=== PATIENT | male | born 1955 | race Hispanic/Latino ===

== ENCOUNTER 2019-10-05 23:20 | Emergency (ER) | payer BC ==
[~2019-10-05] VITALS: Ht 160 cm; Wt 71.7 kg
--- OUTSIDE RECORDS SUMMARY | 2019-10-05 23:23 | XMS REPORT ---
[facility] Address Unknown Phone Unavailable Care Team Providers Care Lay Out Helper Name Role Phone Unavailable Unavailable Payers Payer Name Policy Type Policy Number Effective Date Expiration Date Problems This patient has no known problems. Allergies, Adverse Reactions, Alerts Allergy Name Allergy Type Status Severity Reaction(s) Onset Date Inactive Date Treating Clinician Comments No Known Allergies DA Active U 2018-05-19 00:00:00 No Known Allergies DA Active U 2017-11-29 00:00:00 Medications This patient has no known medications.
--- OUTSIDE RECORDS SUMMARY | 2019-10-05 23:23 | XMS REPORT | Summary of Care ---
Author Author Lyudmila Lazo R.N. Unknown Address [facility] Phone Unavailable Care Team Providers Care Chimney Repairer Name Role Phone SOSA P.A., OFELIA Unavailable Unavailable Lyudmila Lazo R.N. Unavailable Unavailable EMRE [place], DAGMAR TOMPKINS Unavailable Unavailable JOSÉ VICENTE Unavailable Unavailable Unavailable Unavailable Functional Status Name Dates Details Functional status health issues are not documented Status: Name Dates Details Cognitive status health issues are not documented Status: Problems Name Dates Details Benign essential HTN (401.1, I10) Status: Active Mixed hyperlipidemia (272.2, E78.2) Status: Active BPH (benign prostatic hyperplasia) (600.00, N40.0) Status: Active Encounter for diabetic foot exam (250.00, E11.9) Status: Active Diabetes mellitus (250.00, E11.9) Status: Active Medications Name Dates Details Tresiba 100 UNIT/ML Subcutaneous Solution INJECT 65 UNIT DAILY Quantity: 3 SOSA P.A., OFELIA Active 10 ML Vial Lisinopril 20 MG Oral Tablet TAKE 1 TABLET DAILY * Quantity: 90 Refills: 1 SOSA P.A., OFELIA Active Farxiga 10 MG Oral Tablet TAKE 1 TABLET BY MOUTH EVERY MORNING * Quantity: 90 Refills: 0 SOSA P.A., OFELIA Active Finasteride 5 MG Oral Tablet TAKE 1 TABLET DAILY. * Quantity: 90 Refills: 0 SOSA P.A., OFELIA Active Atorvastatin Calcium 80 MG Oral Tablet TAKE 1 TABLET DAILY. * Quantity: 90 Refills: 1 SOSA P.A., OFELIA Active Janumet 50-1000 MG Oral Tablet TAKE 1 TABLET TWICE DAILY. * Quantity: 60 Refills: 0 SOSA P.A., OFELIA Active Tamsulosin HCl - 0.4 MG Oral Capsule TAKE 1 CAPSULE DAILY * Quantity: 90 Refills: 1 SOSA P.A., OFELIA * Start : 19-Sep-2018 Active Allergies and Adverse Reactions Name Dates Details No Known Allergies (Allergy) Status: Active Past Medical History Name Dates Details History of hyperlipidemia (V12.29, Z86.39) Status: Resolved History of hypertension (V12.59, Z86.79) Status: Resolved History of prostatitis (V13.89, Z87.438) Status: Resolved Procedures Procedure Dates Details Procedures not documented Immunization Name Dates Details Immunizations not documented Family History Name Dates Details Family history of diabetes mellitus (V18.0, Z83.3) Status: Active Family history of Hypertension, benign (401.1, I10) Status: Active Family history of hyperlipidemia (V18.19, Z83.438) Status: Active Social History Name Dates Details - Status: Name Dates Details Never smoker Vital Signs Date Test Result Details No Known Vitals to report Results Date Description Value Details Results not documented Plan of Care Name Dates Details Planned Observations Planned Goals not documented Planned Encounters Appointment; JOSÉ CASTELLANOS P.A. On: 06-Jul-2019 15:00 Instructions Name Dates Details Instructions not documented Encounters Appointment; OFELIA SOSA P.A. Encounter Diagnosis: Problem not documented On: 19-Sep-2018 14:15 Appointment; OFELIA SOSA PShelli Encounter Diagnosis: Problem not documented On: 16-Dec-2018 15:00
--- NOTE | 2019-10-06 01:06 | Diagnostic Imaging Report ---
EXAMINATION: CHEST 2 VIEWS INDICATION: Cough, chest congestion. COMPARISON: None FINDINGS: TUBES and LINES: None. LUNGS: Low lung volumes with central vascular congestion. Mild patchy left basilar opacity. Linear subsegmental atelectasis in the left lower lung. Mild bronchial wall thickening. PLEURA: No pleural effusion or pneumothorax. HEART AND MEDIASTINUM: No enlargement of the cardia mediastinal silhouette. Opacity projects over the middle mediastinum on lateral radiograph. BONES AND SOFT TISSUES: No acute osseous lesion. Soft tissues are unremarkable. UPPER ABDOMEN: No free air under the diaphragm. IMPRESSION: Low lung volumes with mild patchy left basilar opacity which may represent atelectasis or early pneumonia in the appropriate clinical setting. Mild bronchial wall thickening, suggestive of bronchitis. Opacity projects over the middle mediastinum on lateral radiograph. This may represent hiatal hernia. Chest CT is suggested for further evaluation. Signed by: Dr. Gwen Carreon MD on 10/06/2019 1:03 AM
[2019-10-06 02:02] VITALS: BP 121/76
== END 2019-10-06 02:06 | disposition home or self-care (01) ==
LOC: ER 23:20
DX: R05 Cough (principal); J15.9 Unspecified bacterial pneumonia; B34.9 Viral infection, unspecified
CPT/HCPCS: 71046; 87400; 99283